=== PATIENT | female | born 1960 | race Caucasian/White ===

== ENCOUNTER → 2018-03-05 12:58 | Outpatient (CLI) | payer MEDICAID, SELFPAY ==
--- NOTE | 2018-03-05 13:05 | RAD_ITS ---
STUDY: X-RAY - CERVICAL SPINE REASON FOR EXAM: Female, 57 years old. Chronic pain radiates to left side TECHNIQUE: 4 view(s) of the cervical spine were obtained. COMPARISON: None FINDINGS: There are degenerative changes of the anterior atlantoaxial articulation. Normal odontoid process. There is an exaggerated cervical lordosis. There is multi-level endplate spondylosis. C3 C4 C4 C5 C5 C6 there is disc space narrowing. There is no apparent acute loss of height or alignment. Normal visualized intervertebral neuroforamina. There is partial visualization of prominent interstitial markings in the lung apices. RAD/Cerv Spine 2 or 3 Views IMPRESSION: Multilevel degenerative disc disease. Straightening of the physiologic lordosis which can be associated with muscle spasm or pain. Electronically Signed: Shelli Chakraborty MD at 18:01 EDT Tel , Service support ,
--- NOTE | 2018-03-05 13:05 | RAD_ITS ---
STUDY: X-RAY - LUMBAR SPINE REASON FOR EXAM: Female, 57 years old. Chronic pain TECHNIQUE: 3 view(s) of the lumbar spine were obtained. COMPARISON: None FINDINGS: Normal lumbar lordosis. There is mild dextroscoliosis. There is a normal alignment of the vertebrae. At L4-L5 there is disc space narrowing, sclerosis and spondylosis. Normal disc space heights. The soft tissue structures are unremarkable. RAD/Lumbar Spine 2 or 3 Views IMPRESSION: Generative change most significant at the level of L4-L5. No apparent acute loss of height or alignment. Electronically Signed: Shelli Chakraborty MD at 21:07 EDT Tel , Service support ,
== END ==
PROVIDERS: Visit Provider Anesthesiology Pain Medicine
DX: M54.9 Dorsalgia, unspecified (principal); M79.606 Pain in leg, unspecified
CPT/HCPCS: 72040; 72100

== ENCOUNTER → 2018-03-21 12:19 | Outpatient (CLI) | payer MEDICAID, SELFPAY ==
[2018-03-21 12:45] VITALS: PULSE 108; PULSE 109; PULSE 111; PULSE 93; PULSE 98; O2SAT 93; O2SAT 94; O2SAT 95; O2SAT 96; O2SAT 98
--- NOTE | 2018-03-22 08:04 | WT_ITS ---
PSN 6 Minute Walk Test - 6 Minute Walk Test 6 Minute Walk Test: 6 Minute Walk Test PSN:6-Minute Walk Test Start: 03/21/18 12: 45 Freq: Status: Active Protocol: [id number] Document 03/21/18 12:45 STACEY (Rec: 03/21/18 12:48 MAGON [id number]) 6 Minute Walk Test Date Performed 03/21/18 Time Performed 12:30 Height 5 ft 6 in Weight: 99.337 kg Weight in Pounds 219.[address]: Phani Villatoro Assistive device used: None Pre-test Oxygen Delivery Method Room Air Pulse Ox (%) 96 Pulse Rate (60-100 beats/min) 93 Dyspnea Keanu Scale (0-10) 0 Exertion Keanu Scale (6-20) 6 1st minute Oxygen Delivery Method Room Air Pulse Ox (%) 95 Pulse Rate (60-100 beats/min) 109 H 2nd minute Oxygen Delivery Method Room Air Pulse Ox (%) 94 Pulse Rate (60-100 beats/min) 108 H 3rd minute Oxygen Delivery Method Room Air Pulse Ox (%) 95 Pulse Rate (60-100 beats/min) 108 H 4th minute Oxygen Delivery Method Room Air Pulse Ox (%) 94 Pulse Rate (60-100 beats/min) 109 H 5th minute Oxygen Delivery Method Room Air Pulse Ox (%) 93 Pulse Rate (60-100 beats/min) 111 H 6th minute Oxygen Delivery Method Room Air Pulse Ox (%) 94 Pulse Rate (60-100 beats/min) 109 H Dyspnea Keanu Scale (0-10) 3 Exertion Keanu Scale (6-20) 13 Post-test Oxygen Delivery Method Room Air Pulse Ox (%) 98 Pulse Rate (60-100 beats/min) 98 Full Laps Walked 15 Partial Lap, Number of Tiles Walked 31 Total Distance Walked (ft) 916 - Interpretation Interpretation: The patient was able to ambulate 916 feet over the course of 6 minutes on room air with no assistive devices or breaks. The patient explains no significant desaturation, but did have tachycardia throughout testing. Peak heart rate was 111 beats per minute. These findings are consistent with deconditioning. - Recommendations Recommendations: No supplemental oxygen is indicated at this time.
== END ==
PROVIDERS: Visit Provider Internal Medicine Critical Care Medicine
DX: R06.02 Shortness of breath (principal)
CPT/HCPCS: 94618

== ENCOUNTER → 2018-04-10 12:54 | Outpatient (CLI) | payer MEDICAID, SELFPAY ==
--- NOTE | 2018-04-11 07:05 | PFT ---
INTRODUCTION: The patient is a 57-year-old female currently under the care of myself the presents for pulmonary function testing secondary to a diagnosis of shortness of breath. Respiratory therapy reports that the patient was unable to perform the correct FVC maneuver for acceptable and reproducible spirometry results. Bronchodilators were used during testing. INTERPRETATION: Forced expiration spirometry demonstrates no evidence of a large airways obstructive ventilatory defect. There was no significant response to aerosolized bronchodilators. Spirograms are of poor quality and terminate prior to 6 seconds, likely underestimating FVC. Body plethysmography was performed and reveals a decreased TLC to 4.46 L, 84% of predicted, indicative of a mild restrictive ventilatory defect. The ERV is significantly reduced at 29% of predicted, which could be related to an underlying body habitus effect. Diffusing capacity by single breath CO is mildly reduced at 66% of predicted. IMPRESSION: These pulmonary function studies demonstrate the presence of a mild restrictive ventilatory impairment with a symmetric reduction in diffusing capacity. The results of testing should be viewed with caution, as patient effort may have adversely affected testing results.
== END ==
PROVIDERS: Visit Provider Internal Medicine Critical Care Medicine
DX: R06.02 Shortness of breath (principal)
CPT/HCPCS: 94060; 94726; 94729

== ENCOUNTER → 2018-04-16 14:10 | Outpatient (CLI) | payer MEDICAID, SELFPAY ==
--- NOTE | 2018-04-16 14:20 | RAD_ITS ---
STUDY: X-RAY CHEST REASON FOR EXAM: Female, 57 years old. Chronic cough. TECHNIQUE: PA and lateral views of the chest. COMPARISON: None. FINDINGS: The lungs are clear and expanded. There is no demonstrated pleural abnormality. Normal size heart. Normal mediastinum and alisia. Normal visualized pulmonary arteries. Normal visualized aortic arch and descending thoracic aorta. There are diffuse degenerative changes of the visualized thoracic spine. Normal visualized ribs, clavicles, and shoulders. There is no demonstrated abnormality of the visualized soft tissue structures of the upper abdomen. RAD/Chest PA and Lateral IMPRESSION: No acute cardiopulmonary process. Electronically Signed: Saba Beatty MD at 17:40 EDT Tel , Service support ,
== END ==
PROVIDERS: Visit Provider Nurse Practitioner Acute Care
DX: R05 Cough (principal)
CPT/HCPCS: 71046

== ENCOUNTER → 2018-04-16 15:00 | Outpatient (CLI) | payer MEDICAID, SELFPAY | PROVIDERS: PCP Family Medicine; Visit Provider Nurse Practitioner Acute Care | DX: R05 Cough (principal) | CPT/HCPCS: 87070; 87077; 87186; 87205 ==

== ENCOUNTER 2018-04-20 14:00 | Outpatient (RCR) | payer MEDICAID, SELFPAY ==
--- NOTE | 2018-03-22 16:30 | HP.PTEVAL_ITS ---
Patient's Visit Information MAX BUNDY is a 57 year old F referred to Physical Therapy by Oz Coronado with a diagnosis of Back pain and leg pain. Date of Evaluation: 03/22/18 Physical Therapist: Joselito Spann PT, - Visit Plan Frequency: 2x /Week Duration: 4 Weeks Plan: Graded activity exposure: lumbar mobility program, LE flexibility, core strengthening program. Can add manual work to improve lumbar assessory motion or soft tissue work to decrease lumbar parapsinal hypertonicity. Modalities prn. Precautions: hx of anxiety - Subjective Subjective: Pt is a 57 y/o female with referral of back pain and leg pain. Pt with 5-6 years of back pain but worsening in the past few months. Pain is located across the low back billaterally. She feels that her back is tight. She just starting having intermittent L LE radicular symtpoms starting 2-3 months ago. When she has this, pain will go down entire posterior L LE. 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 Pt also notes that she has been dealing with a lot of stress from her father dying recently. She does note a history of anxiety and panic attacks. Denies recent trauma, LE n/t, bowel/bladder issues. Aggrevating factors: Standing for an hour , sitting for long time. Easing factors: Rest. Occupation: [employer]. - Pain Bilateral low back pain Pain Intensity (Out of 10): 7 Pain Intensity Range: 10 L LE radicular Pain Intensity (Out of 10): 0 Pain Intensity Range: 10 - Objective OBSERVATION: increaed thoracic kyphosis, mild dyspnea when laying prone. PALPATION: Iliac crest symmetrical, PSIS symmetrical, Supine malleolus symmetrical. NEURO: Sensation intact to light touch, Patellar and achilles DTR 1+, see below for myotomes. GAIT: normal robles reciprocal pattern. ROM: Lumbar flexion* 50% limited, Lumbar extension* 50% limited, lateral flexion full with pain all motion. ASSESSORY MOTION: Hypomobile PAIVM L4,L5*. STRENGTH : Gross LE 5/5. FLEXIBILITY: Hamstrings inflexible bilaterally. - Special Tests L/S Slump test left side: Negative L/S Slump test right side: Negative L/S Left Straight Leg Raise: Negative L/S Right Straight Leg Raise: Negative - Goals Goal 1:: Pt will improve lumbar ROM to at least 25% limited to improve tolerance with functional tasks. Goal Time Frame: 4-6 Weeks Goal 2:: Pt will report ability to ambulate for 20 minutes without breaks and minimal LBP to allow her to resume walking as leisure activity. Goal Time Frame: 4-6 Weeks Goal 3:: Pt will be independent with HEP to sustain gains made in therapy. Goal Time Frame: 4-6 Weeks Goal 4:: Pt will report 50% improvement with work tolerance to improve quality of worklife. Goal Time Frame: 4-6 Weeks - Rehabilitation Potential Physical Therapy Diagnosis: Pt is a 57 y/o female with referral of back pain and leg pain. This is a chronic issue but she notes this has been worsening in the past several months. Objective testing reveals a loss of lumbar flexion/ extension motion, loss of assessory motion, and LE muscular inflexibility. Pt did not appear to have a directional preference. She is having activity limitations that include decreased standing, decreased sitting tolerance, and decreased ambulation distance. This affects her participation with work and walking as a leisure activity. Her prognosis for an ideal outcome is good but is limited by her chronicity of pain and history of anxiety/depression. Pt will benefit from skilled PT to address the mentioned impairments to maximize functional potential. Rehabilitation Potential: Good - Anticipated Interventions Patient/Client Instruction: Educate patient on: Condition, Plan of Care For the Purpose of:: To increase tolerance to activity/condition/position, To improve ability of physical actions for home/community/work/leisure, To foster healthy habits, To improve self management Therapeutic Exercise to Include: Strength training, Endurance training, Body mechanics, Postural training, Flexibilty training, Passive ROM, Active ROM, Dynamic Lumbar Stabilization For the Purpose of:: To decrease pain, To increase ROM, To improve muscle performance and motor function, To improve ability to perform ADL's, To improve ability of physical actions for home/community/work/leisure, To decrease soft tissue restriction, To increase flexibility/ROM, To improve endurance, To foster healthy habits, To improve self management Manual Therapy Techniques to Include: Mobilization, Soft tissue mobilization For the Purpose of:: To decrease pain, To increase ROM, To improve muscle performance and motor function, To improve ability of physical actions for home/ community/work/leisure, To decrease soft tissue restriction, To increase flexibility/ROM Cryotherapy (ice pack, ice massage): Yes Thermo therapy (hot pack): Yes For the Purpose of:: To decrease pain, To increase ROM Thank you for the opportunity to evaluate your patient. For Medicare and Medicare HMO plans, please review the plan of care and approve it. It will need to be FAXED BACK to us at [phone] for Medicare purposes. Please let me know if there are questions or concerns regarding this plan of care. Physician Signature: Date:
--- NOTE | 2018-06-01 15:43 | HP.PTDCNRP_ITS ---
HP - Discharge Summary (1) - Patient Information MAX BUNDY was seen in my office for initial evaluation on 03/22/18. The following Plan of Care was established for this patient: Initial Frequency: 2x /Week Initial Duration: 4 Weeks - Anticipated Interventions Patient/Client Instruction: Educate patient on: Condition, Plan of Care For the Purpose of:: To increase tolerance to activity/condition/position, To improve ability of physical actions for home/community/work/leisure, To foster healthy habits, To improve self management Therapeutic Exercise to Include: Strength training, Endurance training, Body mechanics, Postural training, Flexibilty training, Passive ROM, Active ROM, Dynamic Lumbar Stabilization For the Purpose of:: To decrease pain, To increase ROM, To improve muscle performance and motor function, To improve ability to perform ADL's, To improve ability of physical actions for home/community/work/leisure, To decrease soft tissue restriction, To increase flexibility/ROM, To improve endurance, To foster healthy habits, To improve self management Manual Therapy Techniques to Include: Mobilization, Soft tissue mobilization For the Purpose of:: To decrease pain, To increase ROM, To improve muscle performance and motor function, To improve ability of physical actions for home/ community/work/leisure, To decrease soft tissue restriction, To increase flexibility/ROM Cryotherapy (ice pack, ice massage): Yes Thermo therapy (hot pack): Yes For the Purpose of:: To decrease pain, To increase ROM This patient was last seen in our office 04/20/18. Pertinent comments regarding their Physical therapy will appear below: Patient seen for PT for lumbar pain with interventions with postural,bambi ex ' s,modalities for pain releive. Patient has progressed with decreasing pain to improve function and ADL'S ,but pain is still prevelant ,thus is D/C . May benifit from MR. At this point I will be discontinuing this patient from physical therapy. I would be happy to see this patient again in the future if found appropriate by the physician. Thank you! Joselito Spann, PT,
== END 2018-04-20 19:00 | disposition home or self-care (01) ==
LOC: PT 14:00
PROVIDERS: Visit Provider Anesthesiology Pain Medicine
DX: M54.9 Dorsalgia, unspecified (principal); M79.606 Pain in leg, unspecified
CPT/HCPCS: 97014; 97110; 97162; 97530; G0283

== ENCOUNTER → 2019-03-14 13:00 | Outpatient (CLI) | payer MEDICAID, SELFPAY ==
[2018-09-06 13:49] VITALS: BMI 35.2
--- NOTE | 2019-03-14 13:06 | CT_ITS ---
STUDY: CT CHEST WITHOUT CONTRAST REASON FOR EXAM: Female, 58 years old. Lung nodule RADIATION DOSAGE (If Supplied By Facility): CTDIvol = ( 20.10 ) mGy, DLP = ( 758.29 ) mGycm TECHNIQUE: Transaxial 2.5 mm imaging was performed without the administration of intravenous contrast material. Multiplanar coronal and sagittal images were reformatted. This examination is limited for the evaluation of gastrointestinal, solid organs and vascular structures due to the lack of intravenous and oral contrast. Individualized dose optimization techniques were used for this CT. COMPARISON: Chest x-ray 04/16/2018 FINDINGS: The entirety of the breast parenchyma is not imaged. The left inferior deep breast contains a 1.38 x 1.2 cm slightly lobular low-attenuation nodular density image 69 series 2. Pleural-based nodule left lower lobe 0.39 cm image 85 series 4. Nodular masses or pulmonary nodules detected. Minimal linear changes involving the right lower lobe superior segment and lingula likely scarring. There is no demonstrated pleural abnormality. Normal heart and pericardium. Normal mediastinum. Normal hilar regions. Normal unenhanced pulmonary arteries. Normal aorta arch and descending thoracic aorta. Degenerative changes of the mid thoracic spine with mild kyphosis, centered at the T7-T8 level with sclerosis vertebral body as seen on prior plain films. Elevated right hemidiaphragm. There is low-attenuation of the enlarged liver which is not entirely imaged. Normal adrenal glands. AP spleen measures 13.[address]/Chest without Contrast IMPRESSION: Small pleural-based left lower lobe nodule 0.4 cm. Indeterminate nodular density left breast parenchyma, correlation with recent mammography is recommended. Minor atelectasis in the right lower lobe with elevation of the right hemidiaphragm, hepatic steatosis, hepatomegaly and mild splenomegaly. The?[employer] PULMONARY NODULE RECOMMENDATIONS 2017 GUIDELINES Solitary Solitary nodule size:?<6 mm * low-risk patients: no follow-up needed * high-risk patients: optional CT at 12 months (see specific scenarios below) Solitary nodule size: 6-8 mm * low-risk patients: follow-up at 6-12 months, then consider further follow-up at 18-24 months * high-risk patients: initial follow-up CT at 6-12 months and then at 18-24 months if no change Electronically Signed: Danette Mcgregor MD at 5:28 EDT , Service support ,
== END ==
PROVIDERS: Family Provider Family Medicine; PCP Family Medicine; Referring Provider Internal Medicine Critical Care Medicine; Visit Provider Internal Medicine Critical Care Medicine
DX: R91.1 Solitary pulmonary nodule (principal)
CPT/HCPCS: 71250

== ENCOUNTER → 2019-03-16 09:01 | Outpatient (CLI) | payer MEDICAID, SELFPAY ==
[2018-09-06 13:49] VITALS: BMI 35.2
--- NOTE | 2019-03-16 09:15 | US_ITS ---
STUDY: ABDOMINAL ULTRASOUND - RIGHT UPPER QUADRANT REASON FOR VISIT: Female, 58 years old. Abdominal pain. TECHNIQUE: Ultrasound evaluation of the right upper quadrant was performed with real-time and static garsia-scale imaging. TECHNICAL QUALITY: Limited. Examination limited due to a combination of factors including obesity and bowel gas. COMPARISON: None. FINDINGS: Liver: The liver measures 21 cm. There is increased echogenicity consistent with fatty infiltration. The bile ducts are within normal limits. There is hepatic color flow. The direction of portal flow is hepatopetal. There is no demonstrated mass lesion. Gallbladder: Normal distended gallbladder. The gallbladder wall measures 2.7 mm. There is a negative sonographic Salgado's sign. There is no pericholecystic fluid. There are no gallstones. Common Bile Duct (C.B.D.): The common bile duct measures 2.3 mm. Pancreas: Normal size of the head, body and tail of the pancreas. There is normal echogenicity of the pancreas. There is no demonstrated pancreatic mass or cyst. Right Kidney: Normal size of the right kidney. The right kidney measures 11 x 5.2 x 5.2 cm. Normal renal cortex. The right cortex measures 1.6 cm. There is no demonstrated renal mass or cyst. There is no right hydronephrosis. US/Abdomen Limited IMPRESSION: 1. Hepatomegaly. 2. Fatty infiltration of the liver. 3. No evidence of gallstones. Electronically Signed: Victoriano Paez MD at 12:15 EDT Tel , Service support ,
[2019-03-16 09:53] LABS: Hematocrit 42.4 % (37-47); Hemoglobin 14.6 g/dl (12.0-15.0); Mean Corp Hgb Conc 34.4 g/gl (32-36); Mean Corpuscular Hgb 37.2 pg (27.0-32.0); Mean Corpuscular Volume 107.9 fL (81-99); Mean Platelet Vol. 10.3 fl (6.2-12.0); Platelet Count 230 K/mm3 (150-450); RBC Distribution Width CV 14.3 % (11.6-14.6); RBC Distribution Width SD 56.6 fl (35.1-43.9); Red Blood Count 3.93 M/mm3 (4.2-5.4); Scan Indicated on CBC? Y/N NO; White Blood Count 8.6 K/mm3 (4.4-11.0)
[2019-03-16 10:28] LABS: AST(SGOT) 64 U/L (15-37); Alanine Aminotransfer ALT/SGPT 107 U/L (13-56); Albumin, Serum 3.9 g/dL (3.2-5.0); Alkaline Phosphatase 109 U/L (45-117); Amylase 27 U/L (25-115); Anion Gap 8 (5-15); BUN 14 mg/dL (7-18); BUN/Creat Ratio 18.1 RATIO (10-20); Calcium,Total 8.9 mg/dL (8.5-10.1); Chloride 107 mmol/L (98-107); Creatinine, Serum 0.77 mg/dL (0.55-1.02); EST Glomerular Filtration Rate 82 mL/min (>60); Est Glom Filt Rate - Afr Amer 99 mL/min (>60); Globulin 3.8 g/dL (2.2-4.2); Glucose 127 mg/dL (74-106); Lipase 91 U/L (73-393); Potassium 4.1 mmol/L (3.5-5.1); Protein, Total 7.7 g/dL (6.4-8.2); Sodium Level 140 mmol/L (136-145)
== END ==
PROVIDERS: Family Provider Family Medicine; PCP Family Medicine; Referring Provider Family Medicine; Visit Provider Family Medicine
DX: R10.11 Right upper quadrant pain (principal)
CPT/HCPCS: 36415; 76705; 80053; 82150; 83690; 85027

== ENCOUNTER → 2020-06-30 | Outpatient (CLI) | payer MEDICAID, SELFPAY ==
[2020-06-30 13:44] VITALS: BMI 35.3
== END | disposition home or self-care (01) ==
LOC: LABSPEC 14:47
PROVIDERS: Referring Provider Nurse Practitioner Acute Care; Visit Provider Nurse Practitioner Acute Care
DX: R05 Cough (principal)
CPT/HCPCS: 87070; 87077; 87186; 87205

== ENCOUNTER → 2020-07-10 13:42 | Outpatient (CLI) | payer MEDICAID, SELFPAY ==
[2020-06-30 13:44] VITALS: BMI 35.3
--- NOTE | 2020-07-10 13:44 | CT_ITS ---
STUDY: LOW DOSE CT LUNG CANCER SCREENING REASON FOR EXAM: Female, 59 years old. Tobacco use, smokes 1 pack/day x 30 years, COPD, asthma. RADIATION DOSAGE (If Supplied By Facility): CTDIvol = ( 3.40 ) mGy, DLP = ( 114.86 ) mGycm TECHNIQUE: No contrast was administered. Low dose technique was utilized (average mAS-38 and kVp 120). 1.25 mm axial source images with a slice interval of 1.25-mm were reconstructed in lung windows. 2.5 mm axial source images with a slice interval of 2.5-mm were reconstructed in lung windows. 5.0 mm axial source images with a slice interval of 5.0-mm were reconstructed in soft tissue windows. Nodule measured using lung windows on PACS and/or independent workstation with automated measurement of minimum and maximum diameter. Nodule measurement reported as average diameter rounded to the nearest whole number. Growth is defined as an increase ins size of greater than 1.5 mm. COMPARISON: Comparison is made with prior study dated 03/14/2019. Stable small benign-appearing bilateral axillary lymph nodes. The previously seen nodular density in the inferior deep aspect of the left breast is once again seen. This measures 1.5 cm. NODULES: There is a 2.5 mm pleural-based nodule in the lateral aspect of the left lower lobe as seen on axial image #149. This has decreased in size as compared to prior study. Coronary arteries: Mild degree of coronary artery calcification. Mediastinal nodes: Small benign-appearing mediastinal lymph nodes. Other chest and abdominal findings: Mild degenerative changes of the thoracic spine. CT/Low Dose CT Lung Screening IMPRESSION: Lung-RADS category 2 - Continue annual screening with LDCT in 12 months. IMPORTANT NOTES FOR USE: ACR Lung-RADS Version 1.0 Assessment Categories Release Date: February 17, 2014 Category: Coded 0-4 bases on nodule(s) with highest degree of suspicion. Negative screen is defined as categories 1 and 2; a positive screen is defined as categories 3 and 4. Category 3 and 4A nodules that are unchanged on interval CT should be coded as category 2, and individuals returned to screening in 12 months. Category 4X: Category 3 or 4 nodules with additional imaging findings that increase the suspicion of lung cancer, such as spiculation, GGN that doubles in size in 1 year, enlarged lymph notes, etc. Category Modifiers: S (significant finding unrelated to lung cancer) and C (prior history of treated lung cancer) may be added to the 0-4 Lung-RADS Electronically Signed: Jeffrey Gallagher, at 14:27 EDT , Service support ,
== END ==
PROVIDERS: PCP Family Medicine; Referring Provider Nurse Practitioner Acute Care; Visit Provider Nurse Practitioner Acute Care
DX: Z12.2 Encounter for screening for malignant neoplasm of respiratory organs (principal); F17.210 Nicotine dependence, cigarettes, uncomplicated
CPT/HCPCS: G0297

== ENCOUNTER → 2021-08-13 14:28 | Outpatient (CLI) | payer MEDICAID, SELFPAY ==
--- NOTE | 2021-08-13 14:30 | CT_ITS ---
STUDY: LOW DOSE CT LUNG CANCER SCREENING REASON FOR EXAM: Female, 60 years old. Tobacco Dependency, lung cancer screening RADIATION DOSAGE (If Supplied By Facility): CTDIvol = ( 4.02 ) mGy, DLP = ( 142.95 ) mGycm TECHNIQUE: No contrast was administered. Low dose technique was utilized (average mAS-38 and kVp 120). 1.25 mm axial source images with a slice interval of 1.25-mm were reconstructed in lung windows. 2.5 mm axial source images with a slice interval of 2.5-mm were reconstructed in lung windows. 5.0 mm axial source images with a slice interval of 5.0-mm were reconstructed in soft tissue windows. Nodule measured using lung windows on PACS and/or independent workstation with automated measurement of minimum and maximum diameter. Nodule measurement reported as average diameter rounded to the nearest whole number. Growth is defined as an increase ins size of greater than 1.5 mm. COMPARISON: None. There are no high-risk focal pulmonary findings. There are minimal granulomata, scars or atelectasis and flat noncalcified pleural plaques. Airways are patent. Mediastinal contents are unremarkable with visualized in a limited fashion. Liver is fatty infiltrated and enlarged. There is chronic midthoracic degenerative vertebral sclerosis. CT/Low Dose CT Lung Screening IMPRESSION: Lung RADS category 2. Return to yearly screening. Hepatic steatosis. IMPORTANT NOTES FOR USE: ACR Lung-RADS Version 1.1 Assessment Categories Release Date: 2018 Category: Coded 0-4 bases on nodule(s) with highest degree of suspicion. Negative screen is defined as categories 1 and 2; a positive screen is defined as categories 3 and 4. Category 3 and 4A nodules that are unchanged on interval CT should be coded as category 2, and individuals returned to screening in 12 months. Category 4X: Category 3 or 4 nodules with additional imaging findings that increase the suspicion of lung cancer, such as spiculation, GGN that doubles in size in 1 year, enlarged lymph notes, etc. Category Modifiers: S (significant finding unrelated to lung cancer) Electronically Signed: Олег Leach MD at 20:36 EDT Tel , Service support ,
== END ==
PROVIDERS: PCP Family Medicine; Referring Provider Internal Medicine Critical Care Medicine; Visit Provider Internal Medicine Critical Care Medicine
DX: Z12.2 Encounter for screening for malignant neoplasm of respiratory organs (principal); F17.210 Nicotine dependence, cigarettes, uncomplicated
CPT/HCPCS: 71271

== ENCOUNTER → 2022-08-26 | Outpatient (CLI) | payer MEDICAID, SELFPAY ==
--- NOTE | 2022-08-26 14:52 | CT_ITS ---
STUDY: LOW DOSE CT LUNG CANCER SCREENING REASON FOR EXAM: Female, 61 years old. Tobacco Dependency RADIATION DOSAGE (If Supplied By Facility): CTDIvol = ( 3.18 ) mGy, DLP = ( 114.37 ) mGycm TECHNIQUE: No contrast was administered. Low dose technique was utilized (average mAS-38 and kVp 120). 1.25 mm axial source images with a slice interval of 1.25-mm were reconstructed in lung windows. 2.5 mm cor and sag source images with a slice interval of 2.5-mm were reconstructed in lung windows. COMPARISON: March 14, 2019, August 13, 2021. NODULES: Nodule #: 1 Density: Solid Lung location : Posterior left lower lobe: Bordering pleura Location in series: Series Number: 2 Image: 159 Size - D1 x D2 mm: 5 x 3 mm: 4mm average diameter Margin: Smooth Shape: Oval Calcification: None Fat: None Temporal comparison: Unchanged from March 14, 2019 Total lung nodules (excluding granulomas): 1. No new or enlarging pulmonary nodules. Lungs: No airspace consolidation, effusion, or pneumothorax. Scattered subsegmental atelectasis in lung bases. No endobronchial lesion or debris. Minimal bilateral peribronchial thickening. Aorta: No ectasia or intramural hematoma. Minimal scattered atherosclerosis. CORONARY ARTERIES: Mild calcified coronary atherosclerosis. Heart: No cardiomegaly or pericardial effusion. Pulmonary artery: No main pulmonary artery enlargement. Mediastinal nodes: Scattered subcentimeter short axis lymph nodes unchanged from prior exam, nonpathologic by size criteria. No bulky hilar adenopathy for noncontrast exam. Other chest and abdominal findings: Mid thoracic chronic endplate degenerative changes and chronic anterior vertebral height loss with mildly exaggerated kyphosis, not significantly changed from prior exam. CT/Low Dose CT Lung Screening IMPRESSION: 1. Lung-RADS Category 2 - Continue annual screening with LDCT in 12 months 2. Minimal perihilar peribronchial thickening as can be seen with mild bronchitis/bronchiolitis. IMPORTANT NOTES FOR USE: ACR Lung-RADS Version 1.1 Assessment Categories Release Date: 2018 Category: Coded 0-4 bases on nodule(s) with highest degree of suspicion. Negative screen is defined as categories 1 and 2; a positive screen is defined as categories 3 and 4. Category 3 and 4A nodules that are unchanged on interval CT should be coded as category 2, and individuals returned to screening in 12 months. Category 4X: Category 3 or 4 nodules with additional imaging findings that increase the suspicion of lung cancer, such as spiculation, GGN that doubles in size in 1 year, enlarged lymph notes, etc. Category Modifiers: S (significant finding unrelated to lung cancer) Electronically Signed: Yusuf Noland MD at 8:11 EDT ,
== END | disposition home or self-care (01) ==
LOC: CT 14:51
PROVIDERS: PCP Family Medicine; Referring Provider Internal Medicine Critical Care Medicine; Visit Provider Internal Medicine Critical Care Medicine
DX: Z12.2 Encounter for screening for malignant neoplasm of respiratory organs (principal); F17.210 Nicotine dependence, cigarettes, uncomplicated
CPT/HCPCS: 71271

== ENCOUNTER → 2022-12-16 | Outpatient (CLI) | payer MEDICAID, SELFPAY ==
[2022-12-16 12:39] VITALS: PULSE 100; PULSE 79; PULSE 80; PULSE 96; PULSE 98; PULSE 99; O2SAT 92; O2SAT 93; O2SAT 94; O2SAT 97
--- NOTE | 2022-12-17 06:49 | WT_ITS ---
PSN 6 Minute Walk Test 6 Minute Walk Test 6 Minute Walk Test: 6 Minute Walk Test PSN:6-Minute Walk Test Start: 12/16/22 12:39 Freq: Status: Active Protocol: [id number] Document 12/16/22 12:39 STACEY (Rec: 12/16/22 12:42 STACEY [id number]) 6 Minute Walk Test Date Performed 12/16/22 Time Performed 12:30 Height 5 ft 6 in Weight: 220 lb Weight in Pounds 220.[address]: Sridevi Ornelas [employer]ORD[employer] Assistive device used: None Pre-test Oxygen Delivery Method Room Air Pulse Ox (%) 94 Pulse Rate (60-100 beats/min) 79 Dyspnea Keanu Scale (0-10) 0 Exertion Keanu Scale (6-20) 6 1st minute Oxygen Delivery Method Room Air Pulse Ox (%) 92 Pulse Rate (60-100 beats/min) 96 2nd minute Oxygen Delivery Method Room Air Pulse Ox (%) 93 Pulse Rate (60-100 beats/min) 98 3rd minute Oxygen Delivery Method Room Air Pulse Ox (%) 93 Pulse Rate (60-100 beats/min) 98 4th minute Oxygen Delivery Method Room Air Pulse Ox (%) 94 Pulse Rate (60-100 beats/min) 98 5th minute Oxygen Delivery Method Room Air Pulse Ox (%) 93 Pulse Rate (60-100 beats/min) 99 6th minute Oxygen Delivery Method Room Air Pulse Ox (%) 93 Pulse Rate (60-100 beats/min) 100 Dyspnea Keanu Scale (0-10) 3 Exertion Keanu Scale (6-20) 14 Post-test Oxygen Delivery Method Room Air Pulse Ox (%) 97 Pulse Rate (60-100 beats/min) 80 Full Laps Walked 15 Partial Lap, Number of Tiles Walked 20 Total Distance Walked (ft) 905 Interpretation Interpretation: The patient ambulated 905 feet over the course of 6 minutes beginning on room air without assistive devices. Pretesting oxygen saturation was noted to be 94% on room air. With ambulation, the jorge oxygen saturation was 92%. There was no significant exertional oxygen desaturation. Recommendations Recommendations: There is no indication for the use of supplemental oxygen at this time.
== END | disposition home or self-care (01) ==
LOC: PSN 12:20
PROVIDERS: PCP Family Medicine; Visit Provider Nurse Practitioner Acute Care
DX: J44.9 Chronic obstructive pulmonary disease, unspecified (principal)
CPT/HCPCS: 94618

== ENCOUNTER → 2023-08-17 | Outpatient (CLI) | payer OTHER, SELFPAY ==
--- NOTE | 2023-08-18 05:49 | PFTCOMP ---
COMPLETE PULMONARY FUNCTION TEST INTERPRETATION Brief HPI: Patient is a 62-year-old female, currently under the care of Sridevi Ornelas, who presents to [facility] for complete pulmonary function tests secondary to diagnosis of COPD. Respiratory therapist reports good effort and reproducible results. Interpretation: Forced expiration spirometry shows no large airways obstructive ventilatory defect with an FEV1 of 90% predicted. There is no significant bronchodilator response by strict ATS criteria. Spirograms are of good quality and plateau normally. The respiratory flow volume loop shows a normal pattern. Lung volumes by body plethysmography show a normal total lung capacity at 5.29 L, 100% predicted. All other lung volumes are within normal limits. Diffusion capacity by carbon monoxide is normal at 82% predicted. The airway resistance is slightly elevated. Compared to previous pulmonary function tests from 2018, there is some improvement in lung volumes and DLCO. Impression: These pulmonary function tests are within normal limits
== END | disposition home or self-care (01) ==
PROVIDERS: PCP Family Medicine; Referring Provider Nurse Practitioner Acute Care; Visit Provider Nurse Practitioner Acute Care
DX: J44.9 Chronic obstructive pulmonary disease, unspecified (principal)
CPT/HCPCS: 94060; 94726; 94729

== ENCOUNTER → 2023-12-27 | Outpatient (CLI) | payer BC, SELFPAY ==
--- NOTE | 2023-12-27 13:24 | CT_ITS ---
HISTORY: smoker. TECHNIQUE: Helically acquired images were obtained of the chest without contrast. A radiation dose optimization technique was used for this scan. 538 images. COMPARISON: 08/26/2022, 08/13/2021. FINDINGS: LARGE AIRWAYS: Patent. LUNGS: Very mild linear scarring and stable small juxtapleural and fissural nodule or scars. No new suspicious nodule. PLEURA: No pneumothorax or significant pleural effusion. HEART/PERICARDIUM: Heart within normal limits in size with mild coronary artery calcification. No pericardial effusion. VESSELS: Thoracic aorta nondilated. MEDIASTINUM/FRANCESCO: No pathologically enlarged adenopathy. UPPER ABDOMEN: Enlarged appearance of the liver. BONES: Degenerative sclerosis and endplate changes with osteophytes in the midthoracic spine. CT/Low Dose CT Lung Screening IMPRESSION: No significant interval change. Lung-RADS category 2: Continue annual screening with low dose CT. Electronically Signed: Maria A Browning MD at 12:11 EST ,
== END | disposition home or self-care (01) ==
LOC: CT 13:24
PROVIDERS: PCP Family Medicine; Referring Provider Nurse Practitioner Acute Care; Visit Provider Nurse Practitioner Acute Care
DX: Z12.2 Encounter for screening for malignant neoplasm of respiratory organs (principal); F17.210 Nicotine dependence, cigarettes, uncomplicated
CPT/HCPCS: 71271

== ENCOUNTER → 2024-12-27 | Outpatient (CLI) | payer BC, SELFPAY ==
--- NOTE | 2024-12-27 13:21 | CT_ITS ---
PROCEDURE: LOW DOSE CT LUNG SCREENING REASON FOR EXAM: Smoker TECHNIQUE: Low Dose CT Lung Screening was performed without contrast. Multiplanar reformats and MIP reconstructions were generated. One or more dose reduction techniques were used (e.g., Automated exposure control, adjustment of the mA and/or kV according to patient size, use of iterative reconstruction technique). COMPARISON: 12/27/2023 FINDINGS: Note that evaluation of the vasculature, alisia, and soft tissues is limited in the absence of IV contrast. Heart/pericardium: Mild coronary atherosclerosis. Trace mitral annular calcification. Aorta: Trace atherosclerosis. Pulmonary arteries: Unremarkable. Lymph nodes: Unremarkable. Lungs/pleura: Similar slight elevation of the right hemidiaphragm. Mild atelectasis/scarring. 5 x 5 mm subpleural left lower lobe nodule is unchanged from 08/13/2021 (series 2 image 157). Airways: Unremarkable. Chest wall: Unremarkable. Upper abdomen: Suboptimally evaluated. Hepatomegaly and borderline steatosis with lobulated contours and slight relative caudate hypertrophy. No overt hepatic serosal nodularity. Mild splenomegaly, 13.3 cm. Musculoskeletal: Mid to lower thoracic predominant spondylosis. CT/Low Dose CT Lung Screening IMPRESSION: 1. No new or enlarging pulmonary nodule. Evaluation is LUNG-RADS 2S (benign ap pearance or behavior, clinically significant or potentially significant non-lung cancer findings as below). Recommend continue d annual screening. 2. Hepatomegaly and borderline steatosis with morphologic features suggestive o f possible early fibrosis/cirrhosis. Mild splenomegaly could reflect the presence of portal hypertension. Correlate for clinical and laboratory evidence of chronic liver disease. 3. Additional description as above. Recommendations per Lung-RADS 2021. Additional information involving Lung-RADS is available at [email or web address]. Reading Location: [id number]
== END | disposition home or self-care (01) ==
LOC: CT 13:21
PROVIDERS: PCP Family Medicine; Referring Provider Nurse Practitioner Acute Care; Visit Provider Nurse Practitioner Acute Care
DX: Z12.2 Encounter for screening for malignant neoplasm of respiratory organs (principal); F17.210 Nicotine dependence, cigarettes, uncomplicated
CPT/HCPCS: 71271